=== PATIENT | male | born 1960 | race Asian ===

== ENCOUNTER 2017-12-06 12:43 | Emergency (ER) | payer BC ==
[2017-12-06] MEDS: ALPRAZOLAM 0.25 MG TAB PO (13:28)
[2017-12-06 13:31] LABS: ADD MAN DIFF? NO
[2017-12-06 13:33] LABS: BASOPHIL # 0.1 10^3/ul (0.0-0.1); BASOPHILS % 0.8 % (0.0-2.0); EOSINOPHILS % 0.3 % (0.0-7.0); HEMATOCRIT 47.1 % (42.0-52.0); HEMOGLOBIN 15.7 g/dl (14.0-18.0); LYMPHOCYTES # 1.3 10^3/ul (0.8-2.9); LYMPHOCYTES % 19.2 % (15.0-51.0); MEAN CORPUSCULAR HEMOGLOBIN 29.7 pg (29.0-33.0); MEAN CORPUSCULAR HGB CONC 33.3 g/dl (32.0-37.0); MEAN CORPUSCULAR VOLUME 89.2 fl (82.0-101.0); MEAN PLATELET VOLUME 8.8 fl (7.4-10.4); MONOCYTE # 0.4 10^3/ul (0.3-0.9); MONOCYTES % 5.6 % (0.0-11.0); NEUTROPHIL # 4.9 10^3/ul (1.6-7.5); NEUTROPHILS % 73.9 % (39.0-77.0); PLATELET COUNT 270 10^3/UL (140-415); RED BLOOD COUNT 5.28 10^6/ul (4.70-6.10)
[2017-12-06 13:33] LABS: WHITE BLOOD COUNT 6.6 10^3/ul (4.8-10.8)
[2017-12-06 13:50] LABS: ANION GAP 18 (8-16); BLOOD UREA NITROGEN 17 mg/dl (7-20); CALCIUM 9.7 mg/dl (8.4-10.2); CARBON DIOXIDE 27 mmol/L (21-31); CHLORIDE 104 mmol/L (97-110); CREATININE 0.96 mg/dl (0.61-1.24); GLUCOSE 105 mg/dl (70-220); POTASSIUM 3.9 mmol/L (3.5-5.1); SODIUM 145 mmol/L (135-144)
[2017-12-06 14:21] LABS: THYROID STIMULATING HORMONE 0.175 MIU/L (0.465-4.680)
== END 2017-12-06 16:06 | disposition home or self-care (01) ==
LOC: E/R 12:43
DX: R00.2 Palpitations (principal); E03.9 Hypothyroidism, unspecified; I10 Essential (primary) hypertension; R40.2142 Coma scale, eyes open, spontaneous, at arrival to emergency department; R40.2252 Coma scale, best verbal response, oriented, at arrival to emergency department; R40.2362 Coma scale, best motor response, obeys commands, at arrival to emergency department
CPT/HCPCS: 36415; 80048; 84443; 85025; 93005; 99284-25

== ENCOUNTER 2018-10-07 14:14 | Emergency (ER) | payer BC ==
[2018-10-07] MEDS: NICARDipine HCL 30 MG CAPSULE PO (14:21)
== END 2018-10-07 15:10 | disposition home or self-care (01) ==
LOC: E/R 14:14
DX: I10 Essential (primary) hypertension (principal); R40.2252 Coma scale, best verbal response, oriented, at arrival to emergency department; R40.2362 Coma scale, best motor response, obeys commands, at arrival to emergency department; R40.2142 Coma scale, eyes open, spontaneous, at arrival to emergency department
CPT/HCPCS: 99283; 99283-25